=== PATIENT | female | born 1985 | race Caucasian/White ===

== ENCOUNTER 2017-02-04 07:36 | Inpatient (IN) | payer OTHER ==
[~2017-02-04] VITALS: Ht 182.9 cm; Wt 90.5 kg
[2017-02-04] VITALS (23 sets, daily range): BP systolic 102–136; BP diastolic 58–78
[2017-02-04] MEDS ORDERED: PRENATAL TABLE1 EAC3 PO (08:07)
[2017-02-04 08:48] LABS: EOSINOPHIL (%) 0.4 % (0-5); HEMATOCRIT 33.3 % (36.0-46.0); IMMATURE GRANULOCYTE (%) 0.4 % (0.0-0.7); LYMPHOCYTE COUNT 1.6 K/uL (1.0-2.8); MCHC 33.9 G/DL (30.0-36.0); MCV 97.4 FL (83-99); MEAN PLAT.VOLUME 10.6 uM^3 (9.5-12.4); MONOCYTE (%) 7.6 % (3-12); MONOCYTE COUNT 0.6 K/uL (0-0.8); NEUTROPHIL (%) 72.4 % (45-76); PLATELET COUNT 202 K/uL (156-360); RBC DIS.WIDTH-CV 12.2 % (11.8-14.6); RBC DIS.WIDTH-SD 43.7 % (39-53); RED BLOOD COUNT 3.42 M/uL (3.80-5.20); WHITE BLOOD COUNT 8.3 K/uL (4.1-10.2)
[2017-02-04] MEDS ORDERED: IBUPROFEN800 MG PO (20:50)
[2017-02-05 08:10] VITALS: BP 116/63
[2017-02-05 16:17] VITALS: BP 116/61
[2017-02-06 07:49] VITALS: BP 117/68
== END 2017-02-06 12:12 | disposition home or self-care (01) | DRG 775 ==
LOC: LDRP-OP 07:36 → 2WEST 07:37 → LDRP-OP 20:52 → 2WEST 02-06 12:12 → LDRP-OP 03-06 12:53
PROVIDERS: Obstetrics & Gynecology
PROC: 10E0XZZ Delivery of Products of Conception, External Approach (ICD-10-PCS; principal; 2017-02-04)
PROC: 10907ZC Drainage of Amniotic Fluid, Therapeutic from Products of Conception, Via Natural or Artificial Opening (ICD-10-PCS; 2017-02-04)
PROC: 3E0S33Z Introduction of Anti-inflammatory into Epidural Space, Percutaneous Approach (ICD-10-PCS; 2017-02-04)
PROC: 3E033VJ Introduction of Other Hormone into Peripheral Vein, Percutaneous Approach (ICD-10-PCS; 2017-02-04)
DX: O41.8X31 Other specified disorders of amniotic fluid and membranes, third trimester, fetus 1 (principal); Z37.0 Single live birth; Z3A.40 40 weeks gestation of pregnancy
CPT/HCPCS: 85025; C1755; J3010; J7120